=== PATIENT | male | born 1940 ===

== ENCOUNTER → 2019-01-15 | Outpatient (CLI) | payer MEDICARE, BC ==
[2019-01-15 11:49] LABS: Calcium 9.6 mg/dL (8.4-10.2); Potassium 4.7 mmol/L (3.5-5.1)
--- NOTE | 2019-01-23 14:58 | CT ---
EXAMINATION TYPE: CT chest w con DATE OF EXAM: 01/15/2019 COMPARISON: CT from outside institution 11/05/2018 HISTORY: Follow up scan per patient. Adenopathy CT DLP: 384 mGycm Automated exposure control for dose reduction was used. CONTRAST: CT scan of the chest is performed with IV Contrast, patient injected with 100 mL of Isovue 300. FINDINGS: LUNGS: The lungs are grossly clear, there is no concerning parenchymal mass or nodule identified. Pr obable calcified nodule measuring only approximately 4 mm on axial image 32 shows probable central ca lcification There is no pleural effusion or pneumothorax seen. The tracheobronchial tree is patent. MEDIASTINUM: There are no greater than 1 cm hilar or mediastinal lymph nodes. Calcified subcarinal nodes, right hilar nodes, mediastinal nodes are present. Coronary artery calcifications are present. No pericardial effusion is seen. AORTA: Proximal descending aorta is ectatic at 3.3 cm. OTHER: Scattered low dense foci in the liver statistically are likely to represent cysts, largest in the right lobe on axial image 61 measures 2.6 cm. Degenerative disc changes are noted in the lower c ervical spine. Inferior endplate of what is believed to be L2 shows sclerosis, loss of height. IMPRESSION: No evident adenopathy. Old granulomatous disease. There is aortic aneurysm as described.
== END | disposition home or self-care (01) ==
LOC: RADCTMAIN 10:34
PROVIDERS: ATTEND Internal Medicine Critical Care Medicine
DX: I77.810 Thoracic aortic ectasia (principal); E11.9 Type 2 diabetes mellitus without complications; J44.9 Chronic obstructive pulmonary disease, unspecified
CPT/HCPCS: 94726; 94729; 94060; 80048; 71260; 36415; Q9967

== ENCOUNTER → 2020-05-12 | Outpatient (CLI) | payer MEDICARE, BC ==
--- NOTE | 2020-05-12 21:49 | CT ---
EXAMINATION TYPE: CT abdomen pelvis wo con DATE OF EXAM: 05/12/2020 COMPARISON: None INDICATION: Pelvic pain, recurrent UTI. DLP: 338.3 mGycm, Automated exposure control for dose reduction was used. CONTRAST: 0 mL of Isovue 300. Study performed without Oral Contrast TECHNIQUE: Axial images were obtained from above the diaphragm to the pubic rami in the axial plane a t 5 mm thick sections. Reconstructed images are reviewed on the computer in the coronal plane. FINDINGS: Limited CT sections are obtained the lung bases. The lung bases are clear. CT ABDOMEN: Liver: Normal Spleen: Normal Pancreas: Normal Adrenal glands: The adrenal glands are normal. Gallbladder: Normal Kidneys: No masses are evident. No hydronephrosis is present. No cysts are present. No renal stone s are evident. Aorta: Vascular calcification is within the aorta. Inferior vena cava: Normal. CT PELVIS: Loops of bowel within the abdomen and pelvis are normal. The studies without oral contrast limiti ng bowel evaluation. Appendix: Normal as visualized. Urinary bladder: Thickened urinary bladder wall. Genitourinary structures: Prostate is slightly prominent. Osseous structures: No suspicious lytic or sclerotic lesions. Degenerative disc changes are within th e lower lumbar spine. Mild inferior endplate compression of L2 may be present. IMPRESSIONS: 1. Urinary bladder wall is partially decompressed but appears to have a few slightly thickened wall.
== END | disposition home or self-care (01) ==
LOC: RADCTMAIN 12:38
PROVIDERS: ATTEND Urology
DX: R10.2 Pelvic and perineal pain (principal); N39.0 Urinary tract infection, site not specified
CPT/HCPCS: 74176